=== PATIENT | female | born 1960 | race Caucasian/White ===

== ENCOUNTER 2016-10-25 10:43 | Emergency (ER) | payer OTHER, MEDICAID ==
[~2016-10-25] VITALS: Ht 157.5 cm; Wt 64.6 kg
[2016-10-25 12:10] VITALS: BP 121/72
== END 2016-10-25 12:19 | disposition home or self-care (01) ==
LOC: ED 10:43
DX: S92.514A Nondisplaced fracture of proximal phalanx of right lesser toe(s), initial encounter for closed fracture (principal); K21.9 Gastro-esophageal reflux disease without esophagitis; Z98.890 Other specified postprocedural states; W18.30XA Fall on same level, unspecified, initial encounter; Y93.89 Activity, other specified; Y99.8 Other external cause status; Y92.89 Other specified places as the place of occurrence of the external cause

== ENCOUNTER 2017-07-23 18:16 | Emergency (ER) | payer BC, MEDICAID ==
[~2017-07-23] VITALS: Ht 170.2 cm; Wt 69.4 kg
[2017-07-23 18:24] VITALS: Ht 170.2 cm; Wt 69.4 kg
[2017-07-23 19:22] VITALS: BP 122/68
== END 2017-07-23 19:22 | disposition home or self-care (01) ==
LOC: ED 18:16
DX: S86.912A Strain of unspecified muscle(s) and tendon(s) at lower leg level, left leg, initial encounter (principal); E78.00 Pure hypercholesterolemia, unspecified; K21.9 Gastro-esophageal reflux disease without esophagitis; W01.0XXA Fall on same level from slipping, tripping and stumbling without subsequent striking against object, initial encounter; Y93.89 Activity, other specified; Y92.89 Other specified places as the place of occurrence of the external cause; Y99.8 Other external cause status